=== PATIENT | female | born 1980 | race Caucasian/White ===

== ENCOUNTER 2017-02-20 07:58 | Emergency (ER) | payer OTHER ==
[~2017-02-20] VITALS: Ht 162.6 cm; Wt 61.2 kg
--- NOTE | ~2017-02-20 | US61 ---
[facility] A Service of [facility] & [facility] RADIOLOGY TEXT RESULTS PATIENT: GUERA MORA LOCATION: [facility] : 84 UNIT #: [id number] AGE: [address]: Loreta Salazar MD SEX: F ORDER DR: [id number] [facility] [address] [place], [place] [address] [id number] E MR#: [id number] Acc #: [id number] NAME: GUERA MORA : 1980 SEX: F STUDY DATE/TIME: 02/20/2017 10:31 UNIT: [facility] ROOM: STUDY DESCRIPTION: US /Mat <14Wk / Attending Physician: Loreta Salazar M.D. Ordering Physician: Loreta Salazar M.D. Primary Care Physician: No Primary Care Physician MEDICAL IMAGING REPORT This report is preliminary unless electronic signature is present EXAM Ultrasound pelvis, early assessment, 02/20/2017. HISTORY 37-year-old female complaining of recurrent vaginal bleeding over the last 2 days. Positive test in the ED. Quantitative serum hCG level measures 7208 mIU/ml. TECHNIQUE Pelvic ultrasound examination was performed transabdominally and endovaginally with limited color flow and duplex Doppler vascular imaging. FINDINGS No normal intrauterine gestation is visible. The endometrial cavity is filled with heterogeneous material, some of which shows acoustic shadowing. The findings likely represent first trimester loss with retained products of conception and/or endometrial hematoma. There is no direct or indirect evidence of ectopic in the adnexal regions or elsewhere within the pelvis. The right ovary is mildly enlarged and contains at least 1 cystic structure typical for collapsed corpus luteum along with numerous tiny physiologic follicles. The left ovary is normal. There is no significant free pelvic fluid. IMPRESSION 1. Amorphous material filling the endometrial cavity, likely representing retained products of conception and/or hematoma in the setting of failure. There is no normal intrauterine gestation. 2. Probable collapsed corpus luteum in the right ovary. Both ovaries are otherwise unremarkable. No significant free pelvic fluid. 3. Gestational trophoblastic disease is unlikely. However, careful clinical and laboratory followup is recommended. ST[facility]. [facility] A Service of [facility] & [facility] RADIOLOGY TEXT RESULTS PATIENT: GUER[facility] MORA [id number] : [birth year] UNIT #: [id number] AGE: [address]: Loreta Salazar MD SEX: F ORDER DR: Dictated by... Cali Tobar M.D. THIS IS AN ELECTRONICALLY VERIFIED REPORT Cali Tobar M.D. at 02/20/2017 5:46 PM Guadalupe TD: 02/20/2017 14:50 JOB #: [id number] MEDICAL IMAGING REPORT Page 1 of 1 COPY
[2017-02-20 08:50] LABS: BASOPHIL% 0.7 % (0-2.5); EOSINOPHIL# 0.1 X10e3 (0-0.7); EOSINOPHIL% 2.3 % (0.0-7.0); HEMATOCRIT 19.8 % (35.0-45.0); LYMPHOCYTE# 1.7 X10e3 (1.0-3.5); MEAN CELL VOLUME 61.6 FL (83-96); MEAN CORPUSCULAR HEMOGLOBIN 17.9 PG (28-34); MEAN CORPUSCULAR HGB CONC 29.1 g/dL (30-36); MEAN PLATELET VOLUME 8.2 FL (6.5-11.5); MONOCYTE# 0.6 X10e3 (0-1.0); MONOCYTE% 13.3 % (3.0-12.0); NEUTROPHIL# 2.2 X10e3 (1.5-7.1); NEUTROPHIL% 46.7 % (40-75); PLATELET COUNT 189 X10e3 (140-420); RED BLOOD COUNT 3.22 X10e (3.90-5.30); RED CELL DISTRIBUTION WIDTH 20.8 % (11.0-15.5); WHITE BLOOD COUNT 4.7 X10e3 (4.0-10.5)
[2017-02-20 08:52] LABS: HEMOGLOBIN 5.8 gm/dL (12.0-16.0)
[2017-02-20 09:01] LABS: DIFF IND YES
[2017-02-20 09:09] LABS: CALCIUM SERUM 8.5 mg/dL (8.4-10.2); CREATININE SERUM 0.6 mg/dL (0.6-1.4); GLOM FILT RATE Estimated 118.1 mL/min (>60); POTASSIUM 3.5 mmol/L (3.5-5.1)
[2017-02-20 09:22] LABS: ANISOCYTOSIS MOD; PLATELET ESTIMATE NORMAL (NORMAL)
[2017-02-20 09:24] LABS: POLYCHROMASIA SL; TARGET CELLS MOD
== END 2017-02-20 17:10 | disposition short-term general hospital (02) ==
LOC: CED 07:58
PROVIDERS: Emergency Medicine
DX: D64.9 Anemia, unspecified (principal); R10.9 Unspecified abdominal pain; R11.0 Nausea
CPT/HCPCS: 36415; 36430; 76801; 80048; 84702; 84703; 85025; 86850; 86900; 86901; 86923; 99285; J1265; P9016